=== PATIENT | male | born 1995 | race Caucasian/White ===

== ENCOUNTER 2019-11-24 20:12 | Emergency (ER) | payer MEDICAID, OTHER ==
[~2019-11-24] VITALS: Ht 177.8 cm; Wt 65.8 kg
[~2019-11-24 20:12] MED LIST: METH27TA PO
--- NOTE | 2019-11-24 20:39 | NUR ---
PT CAME TOER BED 12 C/O LEFT THIGH PAIN. PT STATES THAT HE HAS HAD THIS PAIN ON THE ANTERIOR LEFT THIGH FOR A "COUPLE OF DAYS". PT STATES THAT HE HAS HX OF STAPH AND MRSA INFECTION. RED BUMP THAT IS WARM TO THE TOUCH ON THE ANTERIOR LEFT THIGH. NECROTIZED TIP. PT STATES HE PREVIOUSLY POPPED IT AND NOTED GREEN DISCHARGE. AAOX4. VSS. WILL MONITOR ACCORDINGLY.
[2019-11-24] MEDS ORDERED: CEPHALEXIN MONOHYDRATE 500 MG CAPSULE PO ONE ×2 (20:58→21:00)
[2019-11-24] MEDS ORDERED: IBUPROFEN 600 MG TABLET PO ONE ×2 (20:58→21:00)
[2019-11-24] MEDS ORDERED: SULFAMETH/TRIMETH 800/160 MG 1 UDTAB TABLET ONE (20:59)
[2019-11-24] MEDS ORDERED: SULFAMETH/TRIMETH 800/160 MG 1 UDTAB TABLET PO ONE (21:00)
--- NOTE | 2019-11-24 21:41 | NUR ---
Patient discharged to home in stable condition. Written and verbal after care instructions given. Patient verbalizes understanding of instruction.
[2019-11-24 21:42] VITALS: BP 128/76
== END 2019-11-24 21:42 | disposition home or self-care (01) ==
LOC: ER 20:15
DX: L73.9 Follicular disorder, unspecified (principal); F31.9 Bipolar disorder, unspecified; F17.200 Nicotine dependence, unspecified, uncomplicated; Z79.899 Other long term (current) drug therapy

== ENCOUNTER 2019-12-18 10:10 | Emergency (ER) | payer MEDICAID ==
[~2019-12-18] VITALS: Ht 180.3 cm; Wt 63.5 kg
--- NOTE | 2019-12-18 10:22 | NUR ---
TO ER BED 11 FOR WILLY JEAN LCSW CALLED FOR HOMELESS D/C PLANNING
--- NOTE | 2019-12-18 10:49 | NUR ---
Patient given written and verbal discharge instructions. Patient verbalizes understanding of instructions. Patient is ambulatory with steady gait. Refuses offer of alf placement. Patient given list of available shelters in surrounding area. All belongings returned to patient. Discharged in proper clothing, Name band removed.
[2019-12-18 10:51] VITALS: BP 126/75
--- NOTE | 2019-12-18 10:54 | NUR ---
Social service consult requested by for homelessness. Per chart review, pt is a 24-year-old male who came to [facility] for a skin rash. ASE MASTER MECHANIC met with the pt bedside. ASE MASTER MECHANIC introduced self and purpose of the visit. Pt reports, he is homeless and lives in his car since May 2019. Prior to being homeless, pt was living with his girlfriend who is currently and due in April. ASE MASTER MECHANIC offered pt alf placement, however pt declined. Pt reports to have a diagnosis of Bipolar Disorder but states, he disagrees with the diagnosis. Pt reports, [place], every [place] go a Bipolar diagnosis. Pt denies SI/HI at this time. Pt receives food stamps and GR. Pt reports to have not graduated high school. Pt denies drug use but drinks [place] Whisky at times. Pt states, he does smoke cigarettes. ASE MASTER MECHANIC provided pt with active listening and supportive counseling. Pt was give list of [facility] where pt can go to get assistance. No other social service needs are requested at this time. ASE MASTER MECHANIC updated [facility] regarding pt's discharge plan. Homeless Patient Waiver Form was signed by the pt and placed in pt's chart.
== END 2019-12-18 10:53 | disposition home or self-care (01) ==
LOC: ER 10:12
DX: A49.02 Methicillin resistant Staphylococcus aureus infection, unspecified site (principal); Z60.2 Problems related to living alone; Z79.899 Other long term (current) drug therapy

== ENCOUNTER 2020-03-17 16:30 | Emergency (ER) | payer MEDICAID ==
[~2020-03-17] VITALS: Ht 177.8 cm; Wt 63.5 kg
--- NOTE | 2020-03-17 16:38 | NUR ---
called for triage not in the waiting room
--- NOTE | 2020-03-17 16:40 | NUR ---
c/o chin abscess, 10/10 pain scale. Patient a/ox4, breathing even and unlabored, no sob noted. Needs attended. Kept comfortable.
[2020-03-17 17:15] VITALS: BP 129/69
== END 2020-03-17 17:16 | disposition home or self-care (01) ==
LOC: ER 16:30
DX: L03.211 Cellulitis of face (principal); F17.200 Nicotine dependence, unspecified, uncomplicated; Z60.2 Problems related to living alone; Z79.899 Other long term (current) drug therapy
CPT/HCPCS: 87081-TC

== ENCOUNTER 2020-07-05 14:20 | Emergency (ER) | payer MEDICAID ==
[~2020-07-05] VITALS: Ht 180.3 cm; Wt 63.5 kg
[2020-07-05 14:25] VITALS: BP 135/81
--- NOTE | 2020-07-05 14:45 | NUR ---
AT BEDSIDE FOR EVAL.
--- NOTE | 2020-07-05 14:54 | NUR ---
Patient discharged to home in stable condition. Written and verbal after care instructions given. Patient verbalizes understanding of instruction.
== END 2020-07-05 14:56 | disposition home or self-care (01) ==
LOC: ER 14:25
DX: L73.9 Follicular disorder, unspecified (principal); L70.9 Acne, unspecified; Z79.899 Other long term (current) drug therapy

== ENCOUNTER 2020-09-26 15:59 | Emergency (ER) | payer MEDICAID ==
[~2020-09-26] VITALS: Ht 180.3 cm; Wt 72.6 kg
[2020-09-26 16:35] VITALS: BP 134/72
--- NOTE | 2020-09-26 17:30 | NUR ---
Patient discharged to home in stable condition. Written and verbal after care instructions given. Patient verbalizes understanding of instruction.
== END 2020-09-26 17:31 | disposition home or self-care (01) ==
LOC: ER 16:07
DX: L03.313 Cellulitis of chest wall (principal); L03.114 Cellulitis of left upper limb; L03.113 Cellulitis of right upper limb; F11.90 Opioid use, unspecified, uncomplicated; Z79.899 Other long term (current) drug therapy; Z60.2 Problems related to living alone

== ENCOUNTER 2021-04-28 07:38 | Emergency (ER) | payer MEDICAID ==
[~2021-04-28] VITALS: Ht 180.3 cm; Wt 71.2 kg
[2021-04-28 07:52] VITALS: BP 135/81
--- NOTE | 2021-04-28 08:03 | NUR ---
AT BEDSIDE FOR EVAL.
[2021-04-28] MEDS ORDERED: SULF1TAB48 PO (08:20)
[2021-04-28] MEDS ORDERED: MUPI22OI2 TP (08:20)
[2021-04-28] MEDS ORDERED: CEPH500C2 PO (08:20)
--- NOTE | 2021-04-28 08:27 | NUR ---
Patient discharged to home in stable condition. Written and verbal after care instructions given. Patient verbalizes understanding of instruction.
== END 2021-04-28 08:28 | disposition home or self-care (01) ==
LOC: ER 07:42
DX: L73.9 Follicular disorder, unspecified (principal); F31.9 Bipolar disorder, unspecified; F17.200 Nicotine dependence, unspecified, uncomplicated

== ENCOUNTER 2021-06-13 19:15 | Emergency (ER) | payer MEDICAID ==
[~2021-06-13] VITALS: Ht 180.3 cm; Wt 68.0 kg
[~2021-06-13 19:15] MED LIST changes: +CEPH500C2 PO; +MUPI22OI2 TP; +SULF1TAB48 PO
[2021-06-13 20:29] VITALS: BP 128/85
[2021-06-13] MEDS ORDERED: CLIN300C12 PO (20:39)
[2021-06-13] MEDS ORDERED: CLINDAMYCIN HCL 150 MG CAPSULE PO ONE ×2 (20:43→21:00)
== END 2021-06-13 20:57 | disposition home or self-care (01) ==
LOC: ER 19:24
DX: L03.114 Cellulitis of left upper limb (principal); L03.113 Cellulitis of right upper limb; L03.313 Cellulitis of chest wall; F17.210 Nicotine dependence, cigarettes, uncomplicated; Z79.899 Other long term (current) drug therapy

== ENCOUNTER 2021-12-20 16:54 | Emergency (ER) | payer MEDICAID ==
[~2021-12-20] VITALS: Ht 180.3 cm; Wt 81.6 kg
[~2021-12-20 16:54] MED LIST changes: +CLIN300C12 PO
[2021-12-20 17:26] VITALS: BP 141/77
[2021-12-20] MEDS ORDERED: SULF1TAB48 PO (17:38)
[2021-12-20] MEDS ORDERED: CEPH500C2 PO (17:38)
== END 2021-12-20 17:56 | disposition home or self-care (01) ==
LOC: ER 16:56
DX: L08.9 Local infection of the skin and subcutaneous tissue, unspecified (principal); F31.9 Bipolar disorder, unspecified; F17.200 Nicotine dependence, unspecified, uncomplicated; Z79.899 Other long term (current) drug therapy

== ENCOUNTER 2022-03-03 09:12 | Emergency (ER) | payer MEDICAID ==
[~2022-03-03] VITALS: Ht 180.3 cm; Wt 71.2 kg
--- NOTE | 2022-03-03 09:12 | NUR ---
PT BIB SELF C/O L HAND PAIN AND SWELLING X 4 DAYS. PT IS AAOX4, NOT IN RESPIRATORY DISTRESS, V/S STABLE, KEPT RESTED AND COMFORTABLE. WILL CONTINUE TO MONITOR.
--- NOTE | 2022-03-03 09:32 | NUR ---
SEEN AND EXAMINED BY .
--- NOTE | 2022-03-03 09:40 | NUR ---
IV LINE ESTABLISHED BLOOD DRAWN AND SENT TO LAB.
[2022-03-03] MEDS ORDERED: VANCOMYCIN 1 GM in IV D5W 250 ML IV ONE (10:00)
[2022-03-03] MEDS ORDERED: VANCOMYCIN 1 GM VIAL ONE (10:00)
[2022-03-03] MEDS ORDERED: IV NS 0.9% 1,000 ML BAG IV ONE (10:00)
[2022-03-03] MEDS ORDERED: CEFEPIME 1 GM in IV D5W 50 ML IV ONE (10:00)
[2022-03-03 10:02] LABS: BASOPHILS % (AUTO) 0.3 % (0.0-2.0); EOSINOPHILS % (AUTO) 2.3 % (0.0-6.0); HEMATOCRIT 37 % (39-51); HEMOGLOBIN 12.3 g/dL (13.5-17.5); LYMPHOCYTES # (AUTO) 1.7 K/uL (0.8-4.8); LYMPHOCYTES % (AUTO) 17.6 % (20.0-44.0); MEAN CORPUSCULAR HGB CONC 33 g/dl (31.0-36.0); MEAN CORPUSCULAR VOLUME 91 fL (80-96); MONOCYTES % (AUTO) 10.6 % (2.0-12.0); NEUTROPHILS # (AUTO) 6.5 K/uL (1.8-8.9); NEUTROPHILS % (AUTO) 69.2 % (43.0-81.0); PLATELET COUNT (AUTO) 239 K/uL (150-450); RED BLOOD CELL COUNT(AUTO) 4.05 MIL/uL (4.5-6.0); WHITE BLOOD COUNT (AUTO) 9.4 K/uL (4.3-11.0)
[2022-03-03 10:06] LABS: CALCIUM, SERUM 8.2 mg/dL (8.5-10.1); CREATININE 0.9 mg/dL (0.6-1.3); POTASSIUM 3.4 mmol/L (3.5-5.1)
[2022-03-03 10:12] LABS: ALBUMIN 3.6 g/dL (3.4-5.0); BILIRUBIN,DIRECT 0.1 mg/dL (0.0-0.2); BILIRUBIN,TOTAL 0.4 mg/dL (0.2-1.0); TOTAL PROTEIN, SERUM 6.7 g/dL (6.4-8.2)
--- NOTE | 2022-03-03 11:18 | NUR ---
FAXED FACESHEET TO [facility] FOR [facility] TRANSFER
[2022-03-03] MEDS ORDERED: diphenhydrAMINE HCL 50 MG CAPSULE ONE (11:27)
--- NOTE | 2022-03-03 11:31 | NUR ---
IV removed. Catheter intact and site benign. Pressure and 4x4 applied to site. No bleeding noted.
--- NOTE | 2022-03-03 11:35 | NUR ---
Patient does not wish to proceed with medical care recommended by Dr. Flores. Patient given information related to possible complications, up to and including , which could occur as a result of leaving the hospital at this time. Patient verbalizes understanding of risks involved due to leaving against medical advice. Patient has signed AMA form.
[2022-03-03 11:36] VITALS: BP 121/68
[2022-03-03] MEDS ORDERED: diphenhydrAMINE HCL 25 MG CAPSULE PO ONE (12:00)
== END 2022-03-03 11:49 | disposition left against medical advice (07) ==
LOC: ER 11:47
DX: M65.9 Synovitis and tenosynovitis, unspecified (principal); L03.114 Cellulitis of left upper limb; F17.200 Nicotine dependence, unspecified, uncomplicated; Z79.899 Other long term (current) drug therapy
CPT/HCPCS: 36415; 71045; 73130; 80048; 80076; 83605; 85025; 85730; 87040 ×2; 93005; 96365; 96368; 99285; J0692; J3370; J7030; J7060; Q0163

== ENCOUNTER 2022-04-10 08:21 | Emergency (ER) | payer MEDICAID ==
[~2022-04-10] VITALS: Ht 180.3 cm; Wt 72.6 kg
[2022-04-10 08:39] VITALS: BP 124/83
[2022-04-10] MEDS ORDERED: SULF1TAB48 PO (08:50)
[2022-04-10] MEDS ORDERED: MUPI22OI2 TP (08:50)
[2022-04-10] MEDS ORDERED: CLIN150C16 PO (08:50)
--- NOTE | 2022-04-10 09:15 | NUR ---
Patient discharged to home in stable condition. Written and verbal after care instructions given. Patient verbalizes understanding of instruction.
== END 2022-04-10 09:15 | disposition home or self-care (01) ==
LOC: ER 08:24
DX: A49.02 Methicillin resistant Staphylococcus aureus infection, unspecified site (principal); F17.200 Nicotine dependence, unspecified, uncomplicated; Z79.899 Other long term (current) drug therapy